=== PATIENT | male | born 1975 | race African-American/Black ===

== ENCOUNTER 2019-06-30 18:18 | Emergency (ER) | payer OTHER ==
--- NOTE | 2019-06-30 22:33 | RADIOLOGY REPORT (SQ) ---
EXAM DESCRIPTION: XR KNEE 4 OR MORE VIEWS COMPLETED DATE/TME: 06/30/2019 00:00 CLINICAL HISTORY: 44 years, Male, Pain, Tenderness COMPARISON: None. NUMBER OF VIEWS: 4 TECHNIQUE: 4 view left knee LIMITATIONS: None. FINDINGS: Negative for acute fracture or dislocation. Tricompartmental degenerative changes. Minor fragmentation of the anterior tibial tubercle which could reflect chronic patellar tendinopathy. Tiny joint effusion suspected IMPRESSION: Tricompartmental degenerative changes. 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 Tiny joint effusion copyright 2010 [employer]- All Rights Reserved
--- NOTE | 2019-07-01 00:28 | ER Document Report ---
ED Extremity Problem, Lower - General Chief Complaint: Knee Pain Stated Complaint: HURT LEFT KNEE TRAVEL OUTSIDE OF THE [place] IN LAST 30 DAYS: No - HPI Patient complains to provider of: Pain, Swelling Location: Knee Occurred: Yesterday Where: Home Onset/Duration: Gradual Quality of pain: Achy Severity: Mild Associated symptoms: denies: Chest pain, Chills, Dizzy, Fainting, Fever, [place] a crack, [place] a pop, Hurts to breath, Painful ambulation, Rapid heart rate, Seizure, Short of breath, Sweaty, Unable to bear weight, Weak, Other Notes: SHEENT 44-year-old whose had a history of gout in the knee but complains now of swelling to the knee and feels it is not gout as it happened after he was walking and has no erythema warmth to the knee. - Related Data Allergies/Adverse Reactions: No Known Allergies Allergy (Unverified 06/30/19 18:27) Past Medical History - Social History Smoking Status: Never Smoker Frequency of alcohol use: None Family History: None Patient has suicidal ideation: No Patient has homicidal ideation: No Renal/ Medical History: Denies: Hx Peritoneal Dialysis Review of Systems - Review of Systems Musculoskeletal: Joint pain, Joint swelling Skin: denies: No symptoms reported, See HPI, Change in color, Change in hair/nails, Dryness, Lesions, Lumps, Rash, Other Neurological/Psychological: denies: No symptoms reported, See HPI, Confusion, Dementia, Depression, Hallucinations, Anxiety, Homicidal ideation, Sensory change, Weakness, Gait changes, Loss of power, Paralysis, Seizure, Lost consciousness, Headaches, Speech impairment, Numbness, Suicidal ideation, Tingling, Tremor, Other Physical Exam - Vital signs Vitals: Temp Pulse Resp BP Pulse Ox 98.6 F 67 18 145/88 H 98 06/30/19 18:36 06/30/19 18:36 06/30/19 18:36 06/30/19 18:36 06/30/19 18:36 Notes: PHYSICAL EXAMINATION: GENERAL: Well-appearing, well-nourished and in no acute distress. HEAD: Atraumatic, normocephalic. EYES: Pupils equal round and reactive to light, extraocular movements intact, sclera anicteric, conjunctiva are normal. ENT: nares patent, oropharynx clear without exudates. Moist mucous membranes. NECK: Normal range of motion, supple without lymphadenopathy LUNGS: Breath sounds clear to auscultation bilaterally and equal. No wheezes rales or rhonchi. HEART: Regular rate and rhythm without murmurs ABDOMEN: Soft, nontender, normoactive bowel sounds. No guarding, no rebound. No masses appreciated. EXTREMITIES: L Knee reveals a clinical effusion. However there is no warmth or erythema to the knee Malick and drawer tests are negative as are medial and lateral stress no pain over the tibial tuberosity. All other extremities clear NEUROLOGICAL: No focal neurological deficits. Moves all extremities spontaneously and on command. PSYCH: Normal mood, normal affect. SKIN: Warm, Dry, normal turgor, no rashes or lesions noted. Course - Vital Signs Vital signs: Temp Pulse Resp BP Pulse Ox 98.6 F 67 18 145/88 H 98 06/30/19 18:36 06/30/19 18:36 06/30/19 18:36 06/30/19 18:36 06/30/19 18:36 - Transfer of Care Notes: 07/01/19 00:29 X-ray does show degenerative changes she has relatively normal knee exam except for the effusion therefore we placed in a knee immobilizer given prescription for diclofenac Discharge - Discharge Clinical Impression: Internal derangement of knee Condition: Good Disposition: HOME, SELF-CARE Instructions: Use of Crutches ([facility]), Ice & Elevation ([facility]), Knee Immobilizing Splint ([facility]) Additional Instructions: In a towel for 20 minutes 3 times a day are elevated if it does not get better you will need to go to your regular doctor referred to an orthopedic doctor for an MRI of your knee Prescriptions: Diclofenac Sodium 75 mg PO BID PRN #30 tablet.dr STROUD Reason: Pain Scale Of 3
[2019-07-01] MEDS ORDERED: HYDROCODONE/ACETAMINOPHEN 5-325 MG TABLET PO ONE (00:51)
[2019-07-01 01:46] VITALS: BP 140/69
== END 2019-07-01 01:15 | disposition home or self-care (01) ==
LOC: ER 18:18
DX: M23.90 Unspecified internal derangement of unspecified knee (principal); M25.462 Effusion, left knee
CPT/HCPCS: 73564; L1830; 99283